=== PATIENT | male | born 1995 | race Caucasian/White ===

== ENCOUNTER 2023-04-23 21:48 | Emergency (ER) | payer MEDICAID, SELFPAY ==
[2023-04-23 21:53] VITALS: BP 124/68; PULSE 68; RESP 16; TEMP 37; O2SAT 99
--- NOTE | 2023-04-23 22:36 | ED_ITS ---
HPI - Abdominal Pain General Chief Complaint: Abdominal Pain Stated Complaint: ABD PAIN Time Seen by Provider: 04/23/23 22:24 Source: patient Mode of arrival: walk-in Limitations: no limitations History of Present Illness HPI narrative: patient describes that he was started on PCN and naprosyn for dental infection. He now presents complaining of epigastric pain that woke him up from his sleep. The pain was level 5/10 when he woke up. It has now decreased to 2/10. No associated nausea or vomiting. Has past history of anxiety depression for which he takes vistaril and lexapro. No history of heart disease Related Data Home Medications Medication Instructions Recorded Confirmed escitalopram oxalate 5 mg tablet mg 04/23/23 hydroxyzine pamoate 25 mg capsule mg 04/23/23 naproxen 500 mg tablet mg 04/23/23 penicillin V potassium 500 mg mg 04/23/23 tablet Allergies Allergy/AdvReac Type Severity Reaction Status Date / Time No Known Drug Allergies Allergy Verified 04/23/23 21:56 Review of Systems ROS Status of ROS 10 or more systems reviewed and unremark able except as noted in history and below PFSH PFS Social History Smoking status: Current every day smoker Exam Constitutional Vital Signs, click to edit/add: Last Vital Signs Temp 98.6 F 04/23/23 21:53 Pulse 83 04/23/23 23:53 Resp 16 04/23/23 21:53 BP 126/69 04/23/23 23:53 Pulse Ox 99 04/23/23 23:53 O2 Del Method Room Air 04/23/23 21:53 Common normals: no apparent distress, average body habitus, oriented x3, no limitations, healthy appearing, alert and well nourished Eye Common normals: EOMs intact bilaterally and conjunctivae normal Respiratory Common normals: normal respiratory effort and no retractions Cardio Common normals: regular rate, regular rhythm, S1 normal heart sound and S2 normal heart sound GI Other: mild epigastric tenderness Extremity Common normals: normal to inspection and full ROM Neuro Common normals: oriented x3, CN's II-XII intact bilaterally, moves all extremities and no focal motor deficits Psych Appearance: grossly normal Course Vital Signs Vital signs: Vital Signs Temperature 98.6 F 04/23/23 21:53 Pulse Rate 68 04/23/23 21:53 Respiratory Rate 16 04/23/23 21:53 Blood Pressure 124/68 04/23/23 21:53 Pulse Oximetry 99 04/23/23 21:53 Oxygen Delivery Method Room Air 04/23/23 21:53 Temperature 98.6 F 04/23/23 21:53 Pulse Rate 83 04/23/23 23:53 Respiratory Rate 16 04/23/23 21:53 Blood Pressure 126/69 04/23/23 23:53 Pulse Oximetry 99 04/23/23 23:53 Oxygen Delivery Method Room Air 04/23/23 21:53 MDM - Abdominal Pain MDM Narrative Medical decision making narrative: patient presents complaining of abdominal pain that started after he was treated for dental infection with PCN and naprosyn. No vomiting or diarrhea but burning pain of his abdomen that woke him up. Pain decreased by the time he arrived here and then resolved after GI cocktail. cxray normal. EKG without acute changes. Mild elevation of BUN. WBC normal and troponin neg. Patient advised to dc naprosyn and to follow up with his doctor for recheck this week. is to use OTC antacids as needed. Lab Data Labs: Lab Results 04/23/23 Range/Units 22:50 WBC 10.4 (4.0-11.0) 10^3/uL RBC 4.88 (4.70-6.10) 10^6/uL Hgb 14.3 (14.0-18.0) g/dL Hct 43.1 (42.0-54.0) % MCV 88.3 (80.0-94.0) fL MCH 29.3 (25.9-34.0) pg MCHC 33.2 (29.9-35.2) g/dL RDW 12.9 (11.0-15.0) % Plt Count 232 (150-450) 10^3/uL MPV 11.0 (9.5-13.5) fL Neut % (Auto) 56.8 (43.0-75.0) % Lymph % (Auto) 27.3 (20.5-60.0) % [place] % (Auto) 9.6 (1.7-12.0) % Eos % (Auto) 5.1 (0.9-7.0) % Baso % (Auto) 0.8 (0.2-2.0) % Neut # (Auto) 5.9 (1.4-6.5) 10^3/uL Lymph # (Auto) 2.9 (1.2-3.8) 10^3/uL [place] # (Auto) 1.0 H (0.3-0.8) 10^3/uL Eos # (Auto) 0.5 (0.0-0.7) 10^3/uL Baso # (Auto) 0.1 (0.0-0.1) 10^3/uL Abs Immat Gran (auto) 0.04 H (0.00-0.03) 10^3/uL Imm/Tot Granulo (auto) 0.4 (0.0-0.5) % Sodium 138 (136-145) mmol/L Potassium 4.1 (3.5-5.1) mmol/L Chloride 105 (98-107) mmol/L Carbon Dioxide 27.6 (21.0-32.0) mmol/L Anion Gap 9.5 BUN 24.0 H (7.0-18.0) mg/dL Creatinine 0.89 (0.70-1.30) mg/dL Est GFR ( Amer) >60 (>=60) Est GFR (Non-Af Amer) >60 (>=60) BUN/Creatinine Ratio 27.0 Glucose 93 (74-106) mg/dL Calcium 9.0 (8.5-10.1) mg/dL Total Bilirubin 0.3 (0.2-1.0) mg/dL AST 12 L (15-37) U/L ALT 18 (16-63) U/L Alkaline Phosphatase 105 (46-116) U/L Troponin I High Sens 12.5 (4.0-76.1) pg/mL Total Protein 7.1 (6.4-8.2) g/dL Albumin 3.7 (3.4-5.0) g/dL Globulin 3.4 g/dL Albumin/Globulin Ratio 1.1 Discharge Plan Discharge Chief Complaint: Abdominal Pain Clinical Impression: Gastritis Patient Disposition: Home, Self-Care Prescriptions / Home Meds: No Action escitalopram oxalate 5 mg tablet penicillin V potassium 500 mg tablet naproxen 500 mg tablet hydroxyzine pamoate 25 mg capsule Instructions: Gastritis (ED) Additional Instructions: discontinue naprosyn Stand Alone Forms: Portal Instructions Referrals: Physician,Non-Staff, MD [Primary Care Provider] - 1 week
--- NOTE | 2023-04-23 22:39 | ECG_ITS ---
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
--- NOTE | 2023-04-23 22:39 | XR_ITS ---
The [address] [address] Patient Name: HELEN REYNA MRN: [id number] date: 1995 Sex: M Assigned Patient Location: ER Current Patient Location: ER Accession/Order Number: [id number] Exam Date: 04/23/2023 23:20 Report Date: 04/23/2023 23:43 At the request of: ALEX ZAMORANO Procedure: XR chest 1V EXAM: XR chest 1V HISTORY: abdominal pain epigastric and midsternal pain for one week. COMPARISON: Chest x-ray, 01/26/2015. TECHNIQUE: AP upright portable chest x-ray. FINDINGS: The heart, mediastinum and pulmonary vascularity are within normal limits. The lungs are well expanded and clear. The bony thorax is intact. XR/XR chest 1V IMPRESSION: Negative portable chest x-ray. Electronically authenticated by: ARMANDO IRAHETA Date: 04/23/2023 23:43
[2023-04-23] MEDS: lidocaine HCL 15 ML, MAG HYDROX/ALUMINUM HYD/SIMETH 30 ML, HYOSCYAMINE SULFATE 0.25 MG PO (22:57)
[2023-04-23 23:05] LABS: Basophils Absolute Auto 0.1 10^3/uL (0.0-0.1); Basophils Percent Auto 0.8 % (0.2-2.0); Eosinophils Absolute Auto 0.5 10^3/uL (0.0-0.7); Eosinophils Percent Auto 5.1 % (0.9-7.0); Hematocrit 43.1 % (42.0-54.0); Hemoglobin 14.3 g/dL (14.0-18.0); Immature Granulocytes Abs Auto 0.04 10^3/uL (0.00-0.03); Immature Granulocytes Pct Auto 0.4 % (0.0-0.5); Lymphocytes Absolute Auto 2.9 10^3/uL (1.2-3.8); Lymphocytes Percent Auto 27.3 % (20.5-60.0); Mean Corpuscular HGB Conc 33.2 g/dL (29.9-35.2); Mean Corpuscular Hemoglobin 29.3 pg (25.9-34.0); Mean Corpuscular Volume 88.3 fL (80.0-94.0); Monocytes Percent Auto 9.6 % (1.7-12.0); Neutrophils Absolute Auto 5.9 10^3/uL (1.4-6.5); Neutrophils Percent Auto 56.8 % (43.0-75.0); Platelet Count 232 10^3/uL (150-450); Red Blood Count 4.88 10^6/uL (4.70-6.10); Red Cell Distribution Width 12.9 % (11.0-15.0); White Blood Count 10.4 10^3/uL (4.0-11.0)
[2023-04-23 23:20] LABS: Alanine Aminotransferase 18 U/L (16-63); Albumin Globulin Ratio 1.1; Albumin Level 3.7 g/dL (3.4-5.0); Alkaline Phosphatase 105 U/L (46-116); Anion Gap 9.5; Aspartate Amino Transferase 12 U/L (15-37); Bilirubin Total 0.3 mg/dL (0.2-1.0); Carbon Dioxide 27.6 mmol/L (21.0-32.0); Chloride 105 mmol/L (98-107); Estimated GFR (African America >60 (>=60); Estimated GFR (Non-African Ame >60 (>=60); Globulin 3.4 g/dL; Glucose 93 mg/dL (74-106); Potassium 4.1 mmol/L (3.5-5.1); Sodium 138 mmol/L (136-145); Total Protein 7.1 g/dL (6.4-8.2); Troponin I High Sensitivity 12.5 pg/mL (4.0-76.1)
[2023-04-23 23:53] VITALS: BP 126/69; PULSE 83; O2SAT 99
[2023-04-24 01:02] VITALS: PULSE 98; O2SAT 100
== END 2023-04-24 01:03 | disposition home or self-care (01) ==
PROVIDERS: Emergency Provider Internal Medicine
DX: K29.70 Gastritis, unspecified, without bleeding (principal); F41.9 Anxiety disorder, unspecified; F32.A Depression, unspecified; F17.200 Nicotine dependence, unspecified, uncomplicated
CPT/HCPCS: 36415; 71045; 80053; 84484; 85025; 93005; 99285

== ENCOUNTER 2023-05-09 03:52 | Emergency (ER) | payer MEDICAID, SELFPAY ==
[2023-05-09 03:56] VITALS: BP 160/83; PULSE 75; RESP 20; TEMP 37.2; O2SAT 98; BMI 24.4
--- OUTSIDE RECORDS SUMMARY | 2023-05-09 03:59 | XMS_ITS | CCD ---
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 together: Not on file Attends orthodox service: Not on file Active member of club or organization: Not on file Attends meetings of clubs or organizations: Not on file Relationship status: Not on file Other Topics Concern Not on file Social History Narrative Not on file MEDs: No current outpatient medications on file prior to encounter. ALL: No Known Allergies ROS: Review of Systems Constitutional: Negative for fever. Cardiovascular: Negative for chest pain. Gastrointestinal: Negative for nausea and vomiting. Musculoskeletal: Positive for neck pain. Negative for arthralgias and neck stiffness. Skin: Positive for wound. Negative for color change. Neurological: Positive for headaches. Negative for dizziness and numbness. All other systems reviewed and are negative. Positives and pertinent negatives as per HPI. All other systems were reviewed and are negative. Physical Exam: Patient Vitals for the past 24 hrs: BP Temp Temp src Pulse Resp SpO2 Height Weight 10/02/18 2106 125/78 98.1 F (36.7 C) Oral 77 16 99 % 5' 11 74.8 kg (165 lb) Physical Exam Constitutional: He is oriented to person, place, and time. He appears well- developed and well-nourished. No distress. HENT: Head: Normocephalic. Not microcephalic. Head is with laceration. Head is without raccoon's eyes and without abrasion. Mouth/Throat: Uvula is midline and oropharynx is clear and moist. Eyes: Conjunctivae and EOM are normal. Pupils are equal, round, and reactive to light. Neck: Normal range of motion and full passive range of motion without pain. Neck supple. Muscular tenderness present. No spinous process tenderness present. No edema, no erythema and normal range of motion present. There is tenderness to palpation noted in the LEFT paraspinal muscles of the upper cervical spine extending into the trapezius. There is no midline tenderness to palpation. Patient has 5 out of 5 strength in her upper extremities. Radial, median and ulnar are intact in the hands bilaterally. Cardiovascular: Normal rate and regular rhythm. Pulmonary/Chest: Effort normal and breath sounds normal. He exhibits no tenderness. Abdominal: Soft. Bowel sounds are normal. There is no tenderness. There is no rebound and no guarding. Neurological: He is alert and oriented to person, place, and time. He has normal strength. No cranial nerve deficit. He exhibits normal muscle tone. He displays a negative Romberg sign. Coordination and gait normal. GCS eye subscore is 4. GCS verbal subscore is 5. GCS motor subscore is 6. No facial droop or asymmetry. Speech clear, no dysarthria. Tongue remains midline when extended. Palate upgoing bilaterally. Extraocular movements intact. Visual west intact bilaterally. Shoulder shrug 5 out of 5 bilaterally. No motor or sensory deficit, no extensor drift in either arm or leg. Finger to nose, heel to rios normal Speech clear, face symmetric, PERRL, EOMI, no nystagmus noted, strength 5/5x4, sensation and coordination are grossly intact, gait steady Skin: Skin is warm. Capillary refill takes less than 2 seconds. No erythema. Psychiatric: He has a normal mood and affect. His behavior is normal. Nursing note and vitals reviewed. Laboratory & Radiological Imaging (if done): Labs Reviewed - No data to display CT Cervical Spine Without Contrast 3D Final Result No fracture or dislocation. Possible a small posterior central disc protrusion each at C3-C4 and C4-5. Workstation ID: [id number] CT Head Or Brain Without Contrast Final Result No acute intracranial process. A small right parietooccipital scalp hematoma. Workstation ID: [id number] Procedures: Wound extent: Lac Repair Date/Time: 10/02/2018 10:10 PM Performed by: Abida Martinez CNP Authorized by: Juan Boyd MD Verbal consent: obtained Consent given by: patient Relevant documents: Relevent documents present and verified. Medical history, medications, allergies and physical assessment reviewed/completed Patient identity confirmed: verified patient name and Body area: head/neck Location details: scalp Laceration length: 3 (y shape jagged laceration) cm Foreign bodies: no foreign bodies Anesthesia: local infiltration Anesthesia: Local Anesthetic: lidocaine 1% without epinephrine and LET (lido,epi,tetracaine) Anesthetic total: 5 mL Patient sedated: no Repair type: intermediate Preparation: Patient was prepped and draped in the usual sterile fashion. Irrigation solution: saline Irrigation method: syringe Amount of cleaning: extensive Hemostasis achieved with: direct pressure Wound exploration: wound explored through full range of motion Skin closure: may Number of sutures: 7 Number of sutures: 2 Technique: simple interrupted Approximation: close Dressinx4 sterile gauze and gauze roll Patient tolerance: Patient tolerated the procedure well with no immediate complications Note: To expedite correspondence this note was generated by [employer] voice recognition software. Some grammatical or spelling errors may occur using the system. SARA Aguirre, ENP-C ED Nurse Practitioner [facility] (Please note that portions of this note have been completed with a voice recognition software. Efforts were made to correct any errors, but occasionally words are mis-transcribed.) Abida Martinez CNP 10/02/18 2250 See /ISATU charting for full physical exam Patient reports slipping and falling. Patient hit head on the ground. Denies LOC. Bed: 24 Expected date: Expected time: Means of arrival: Comments: documented in this encounter ED Attestation Note - Juan Boyd MD - 10/02/2018 10:46 PM EDT Miscellaneous Notes (unrecog nized section and content) ED Attestation: I was personally available for consult in the ED for this patient, if the Advanced Practice Provider (K[facility]) needed any assistance. The [facility] evaluated the patient independently for a complaint of Head Laceration, and completed their own examination, documentation, and discharge. Juan Boyd MD, FACEP Emergency Department Physician documented in this encounter (unrecognized sect ion and content) No Status Records FoundNo Status Records Found INFORMATION SOURCE (unrecogn ized section and content) DATE CREATED AUTHOR 12/21/2018 [facility] DATE CREATED AUTHOR AUTHOR'S ORGANIZ ATION 09/08/2021 [facility] DATE CREATED AUTHOR AUTHOR'S ORGANIZ ATION 04/18/2023 [facility] FOR RECORDS PERTAINING TO PATIENTS WHO ARE OR HAVE BEEN ENROLLED IN A CHEMICAL DEPENDENCY/SUBSTANCEABUSE PROGRAM, SOME INFORMATION MAY BE OMITTED. This clinical summary was aggregated from multiple sources. Caution should be exercised in using it in the provision of clinical care. This summary normalizes information from multiple sources, and as a consequence, information in this document may materially change the coding, format and clinical context of patient data. In addition, data may be omitted in some cases. CLINICAL DECISIONS SHOULD BE BASED ON THE PRIMARY CLINICAL RECORDS. [facility] [employer] provides no warranty or guarantee of the accuracy or completeness of information in this document.
--- NOTE | 2023-05-09 04:22 | ED.DENTAL1 ---
HPI - Dental/Oral General Chief complaint: Dental/Oral Stated complaint: DENTAL PAIN Time Seen by Provider: 05/09/23 04:01 Source: patient Mode of arrival: walk-in History of Present Illness HPI Narrative: This 28-year-old male presents for evaluation of left lower posterior molar pain. The patient has a severely decayed and broken left posterior molar, tooth #17. He states for the past several days he has been having pain in this area. He has been using Tylenol and Motrin without relief. He has not had a fever. There is no sign of necrotizing gingivitis. His girlfriend states they have been calling around to different dentists but most dentists are booked until July. Related Data Home Medications Medication Instructions Recorded Confirmed escitalopram oxalate 5 mg tablet 5 mg PO DAILY 04/23/23 05/09/23 hydroxyzine pamoate 25 mg capsule 25 mg PO DAILY 04/23/23 05/09/23 Allergies Allergy/AdvReac Type Severity Reaction Status Date / Time No Known Drug Allergies Allergy Verified 05/09/23 03:58 Review of Systems ROS Status of ROS 10 or more systems reviewed and unremarkable except as noted in history and below [facility] Social History Smoking status: Current every day smoker Exam Narrative Exam Narrative: Nurses note and vital signs reviewed and patient is not hypoxic. General: Uncomfortable appearing male, he is sitting on a stool and shaking, he is tearful, no respiratory distress Skin: Warm, dry, no pallor noted. There is no rash noted. Head: Normocephalic, atraumatic Eye: Normal conjunctiva, no drainage, EOMI. PERRL Ears, Nose, Mouth, and Throat: oral mucosa is moist.Teeth are in generally poor condition. The left posterior molar #17 is severely decayed and the medial aspect of the tooth is broken to the gumline. There is no visible abscess. There is no sign of any necrotizing gingivitis. There is no swelling of the tongue, uvula or pharyngeal soft tissues. There is no pooling of secretions. Cardiovascular: Regular Rate and Rhythm Respiratory: Patient is in no distress, no accessory muscle use, lungs are clear to auscultation, no wheezing, rales or rhonchi Neurological: A&O x4, normal speech Psychiatric: Cooperative Constitutional Vital Signs, click to edit/add: Last Vital Signs Temp 98.9 F 05/09/23 03:56 Pulse 75 05/09/23 03:56 Resp 20 05/09/23 03:56 BP 160/83 H 05/09/23 03:56 Pulse Ox 98 05/09/23 03:56 O2 Del Method Room Air 05/09/23 03:56 Course Vital Signs Vital signs: Vital Signs Temperature 98.9 F 05/09/23 03:56 Pulse Rate 75 05/09/23 03:56 Respiratory Rate 20 05/09/23 03:56 Blood Pressure 160/83 H 05/09/23 03:56 Pulse Oximetry 98 05/09/23 03:56 Oxygen Delivery Method Room Air 05/09/23 03:56 Temperature 98.9 F 05/09/23 03:56 Pulse Rate 75 05/09/23 03:56 Respiratory Rate 20 05/09/23 03:56 Blood Pressure 160/83 H 05/09/23 03:56 Pulse Oximetry 98 05/09/23 03:56 Oxygen Delivery Method Room Air 05/09/23 03:56 MDM - Dental/Oral MDM Narrative Medical decision making narrative: This 28-year-old male presents for evaluation of several days of left posterior molar pain Where he has a broken and decayed left posterior molar. There was no sign of any necrotizing gingivitis. I did not visualize an abscess. There is no swelling of the posterior pharynx and no pooling of secretions. The patient had been using Tylenol and Motrin without significant improvement in his pain. Upon arrival he was hypertensive and shaking in pain. Dental analgesia and a dental block was used to control his pain. He was medicated with oral amoxicillin. [facility] report was reviewed and is negative for any recent activity. He was discharged home with 2 percocet to use once his dental block wears off and Rx for norco and amoxil as well as referral information for local dentists. Discharge Plan Discharge Chief Complaint: Dental/Oral Clinical Impression: Dental caries, Toothache Patient Disposition: Home, Self-Care Time of Disposition Decision: 05:05 Condition: Good Prescriptions / Home Meds: No Action escitalopram oxalate 5 mg tablet 5 mg PO DAILY hydroxyzine pamoate 25 mg capsule 25 mg PO DAILY Instructions: Toothache (ED) Stand Alone Forms: Portal Instructions Referrals: Physician,Non-Staff, MD [Primary Care Provider] - 1 week Procedures ED Procedure Instructions Procedures Procedures: Procedure note: Dental block; a mixture of 0.5 percent Marcaine and 1 percent lidocaine was used to infiltrate the alveolar space around tooth #17. Patient tolerated procedure well and had relief of his pain.
[2023-05-09] MEDS: AMOXICILLIN 500 MG CAPSULE PO (04:32)
[2023-05-09] MEDS: ONDANSETRON 4 MG RAPDIS TABLET SL (04:32)
[2023-05-09] MEDS: OXYCODONE HCL/ACETAMINOPHEN 5MG/325MG 2 TAB PO (04:34)
[2023-05-09] MEDS: BUPIVACAINE HCL 0.5% PF 50 MG/10 ML VIAL 5 ML INJ (04:37)
[2023-05-09] MEDS: LIDOCAINE HCL 1% 100 MG/10 ML MDV 5 ML INJ (04:37)
[2023-05-09] MEDS: BENZOCAINE 30 ML, lidocaine HCL 15 ML MM (05:09)
== END 2023-05-09 05:18 | disposition home or self-care (01) ==
PROVIDERS: Emergency Provider Emergency Medicine
DX: K02.9 Dental caries, unspecified (principal); K08.89 Other specified disorders of teeth and supporting structures; F17.200 Nicotine dependence, unspecified, uncomplicated
CPT/HCPCS: 64450; 99284

== ENCOUNTER 2023-05-31 21:58 | Emergency (ER) | payer MEDICAID, SELFPAY ==
[2023-05-31 22:02] VITALS: BP 131/75; PULSE 70; RESP 16; TEMP 36.7; O2SAT 99; BMI 24.4
--- OUTSIDE RECORDS SUMMARY | 2023-05-31 22:04 | XMS_ITS | CCD ---
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 Luis Aleman BAR Negative Normal NEGATIVE [facility] Comment on above: Performed By: #### D RUGRPD #### [facility] [address] [place] [address] Dr. Luis Aleman BUP Negative Normal NEGATIVE [facility] Comment on above: Performed By: #### D RUGRPD #### [facility] [address] [place] [address] Dr. Luis Aleman BZO Negative Normal NEGATIVE [facility] Comment on above: Performed By: #### D RUGRPD #### [facility] [address] [place] [address] Dr. Luis Aleman BRAYDEN Negative Normal NEGATIVE [facility] Comment on above: Performed By: #### D RUGRPD #### [facility] [address] [place] [address] Dr. Luis Aleman CUT-OFFS SEE BELOW Normal [facility] Comment on above: Result Comment: AMP (Amphetamine): 500ng/mL, BAR (Barbituates): 200 ng/mL, BZO (Benzodiazepines): 150 ng/mL, BUP (Buprenorphine): 10 ng/mL, BRAYEDN (Cocaine): 150 ng/mL, mAMP (Methamphetamine): 500 ng/mL, MTD (Methadone): 200 ng/mL, OPI (Opiates): 100 ng/mL, OXY (Oxycodone): 100 ng/mL, PCP (Phencyclidine): 25 ng/mL, PPX (Propoxyphene): 300 ng/mL, THC (Cannabinoids): 50 ng/mL, TCA (Trycyclic Antidepressants): 300 ng/mL Performed By: #### D RUGRPD #### [facility] [address] [place] [address] Dr. Luis Aleman DRUG CUT HEADER DRUG CLASS TEST SYST EM CUT-OFF CONCENTRATIONS ARE FOLLOWS: Normal [facility] Comment on above: Performed By: #### D RUGRPD #### [facility] [address] [place] [address] Dr. Luis Aleman mAMP Negative Normal NEGATIVE [facility] Comment on above: Performed By: #### D RUGRPD #### [facility] [address] [place] [address] Dr. Luis Aleman MTD Negative Normal NEGATIVE [facility] Comment on above: Performed By: #### D RUGRPD #### [facility] [address] [place] [address] Dr. Luis Aleman OPI Negative Normal NEGATIVE [facility] Comment on above: Performed By: #### D RUGRPD #### [facility] [address] [place] [address] Dr. Luis Aleman OXY Negative Normal NEGATIVE [facility] Comment on above: Performed By: #### D RUGRPD #### [facility] [address] [place] [address] Dr. Luis Aleman PCP Negative Normal NEGATIVE [facility] Comment on above: Performed By: #### D RUGRPD #### [facility] [address] [place] [address] Dr. Luis Aleman PPX Negative Normal NEGATIVE [facility] Comment on above: Performed By: #### D RUGRPD #### [facility] [address] [place] [address] Dr. Luis Aleman TCA Negative Normal NEGATIVE [facility] Comment on above: Performed By: #### D RUGRPD #### [facility] [address] [place] [address] Dr. Luis Aleman THC Negative Normal NEGATIVE [facility] Comment on above: Performed By: #### D RUGRPD #### [facility] [address] [place] [address] CERVICAL SPINE WITHOUT [...] images were generated on a separate independent [employer] workstation. COMPARISON: None. FINDINGS: No acute fracture [...] each at C3-C4 and C4-5. Workstation ID: [id number] Dictated by: VARGAS BLANCO on SatOctober 02, 2018 10:30:04 PM EDT Transcribed by: VARGAS BLANCO on SatOctober 02, 2018 10:30:04 PM EDT Finalized by: VARGAS BLANCO on SatOctober 02, 2018 10:30:04 PM EDT [facility] Comment on above: Order Comment: Reaso n for exam?:Patient reports slipping and falling. Patient hit head on the ground. Denies LOC. Injury/Trauma or Illness?:Injury/Trauma How long have you had these symptoms (acute/chronic)?:Acute Type of Exam?:Initial Mechanism of injury?:fall No fracture or dislocation. Possible a small posterior central disc protrusion each at C3-C4 and C4-5. Workstation ID: [id number] [facility] EXAMINATION: CT CERVICAL SPINE WITHOUT [...] images were generated on a separate independent [employer] workstation. COMPARISON: None. FINDINGS: No acute fracture or dislocation. The prevertebral soft tissue space appears normal. Possible a small posterior central disc protrusion each at C3-C4 and C4-5. The visualized intracranial contents appear normal. The visualized neck shows no abnormal mass. The visualized upper lungs are clear. [facility] Interface, Rad In Fu ji [...] images were generated on a separate independent [employer] workstation. COMPARISON: None. FINDINGS: No acute fracture [...] each at C3-C4 and C4-5. Workstation ID: [id number] [facility] CT HEAD OR BRAIN WITHOUT [...] small right parietooccipital scalp hematoma. Workstation ID: [id number] Dictated by: VARGAS BLANCO on SatOctober 02, 2018 10:25:56 PM EDT Transcribed by: VARGAS BLANCO on SatOctober 02, 2018 10:25:56 PM EDT Finalized by: VARGAS BLANCO on SatOctober 02, 2018 10:25:56 PM EDT [facility] Comment on above: Order Comment: Reaso n for exam?:Patient reports slipping and falling. Patient hit head on the ground. Denies LOC. Injury/Trauma or Illness?:Injury/Trauma How long have you had these symptoms (acute/chronic)?:Acute Type of Exam?:Initial Mechanism of injury?:fall No acute intracrania l process. A small right parietooccipital scalp hematoma. Workstation ID: [id number] [facility] EXAMINATION: CT HEAD OR BRAIN [...] small right parietooccipital scalp hematoma is present. [facility] Interface, Rad In Fu ji [...] small right parietooccipital scalp hematoma. Workstation ID: [id number] [facility] LACERATION REPAIRon 10-03-19 Abida Martinez [...] the procedure well with no immediate complications [facility] Vital Signs Date Time Vital Sign Value Performing Clinician Facility 04-11-2023 12:40-0500 Body height 177.8 cm Azalea Kimani Other [facility] Other 04-11-2023 12:40-0500 Body mass index (BMI) [Ratio] 25.68 kg/m2 Azalea Kimani Other [facility] Other 04-11-2023 12:40-0500 Body temperature 98.8 [degF] Azalea Kimani Other [facility] Other 04-11-2023 12:40-0500 Body weight 81.19 kg Azalea Kimani Other [facility] Other 04-11-2023 12:40-0500 Respiratory rate 19 /min Azalea Kimani Other [facility] Other 04-11-2023 12:40-0500 SaO2% (BldA) [Mass fraction] 97 % Azalea Kimani Other [facility] Other 10-02-2018 21:06-0400 BMI (Body Mass Index) 23.01 kg/m2 Juan Boyd [facility] 10-02-2018 21:06-0400 Body Temperature 98.1 [degF] Juan Boyd [facility] 10-02-2018 21:06-0400 BP Diastolic 78 mm[Hg] Juan [facility] 10-02-2018 21:06-0400 BP Systolic 125 mm[Hg] Juan [facility] 10-02-2018 21:06-0400 Height 180.3 cm Juan [facility] 10-02-2018 21:06-0400 Pulse (Heart Rate) 77 /min Juan [facility] 10-02-2018 21:06-0400 Pulse Oximetry 99 % Juan [facility] 10-02-2018 21:06-0400 Respiratory Rate 16 /min Juan [facility] 10-02-2018 21:06-0400 Weight 74.84 kg Juan [facility] Encounters Encounter Date Encounter Type Care Provider Facility Start: 04-11-2023 End: 04-11-2023 ambulatory Azalea Kimani Other [facility] Other Start: 04-11-2023 Office outpatient visit 15 minutes Azalea Kimani [facility] Start: 03-07-2023 ambulatory Ludwin Stephen acility:[facility] Start: 09-05-2021 End: 09-05-[address] NONE LISTED REQUEST Facility: Start: 10-02-2018 End: 10-03-2018 Emergency department patient visit JUAN CABRAL [facility] Start: 10-02-2018 End: 10-02-2018 Emergency department patient visit Juan Boyd Work Phone: [facility] Emergency Department Comment on above: Head [...] given SE QUENTIAL INFLUENZA VACCINE (Season Ended) [facility] Start: 1997 History and physical examination, annual for health maintenance Wellness Visit [facility] Start: 1994 Tetanus vaccination TETANUS EVERY 10 YR [facility] Immunizations Immunization Date Immunization Notes Care Provider Kae salinasty 10-02-2018 diphtheria, tetanus toxoids and acellular pertussis vaccine, unspecified formulation Juan Boyd [facility] 10-02-2018 tetanus toxoid, redu nataly diphtheria toxoid, and acellular pertussis vaccine, adsorbed Juan [facility] Payers Date Payer Category Payer Self-pay 1994 Unknown [id number] 1994 Unknown [id number] 1959 Unknown [id number] Unknown INCARCERATIONS I NC-INCARCERATED MISC xxxxxxxxx Effective for all dates xxxxxxxxx [id number] Unknown [id number] Social History Date Type Detail Facility Start: 10-02-2018 Tobacco smoking status NHIS Former smoker [facility] Sex Assigned At Not on file [facility] Sex Assigned At Sex Assigned At [facility] Other Evaluation note 04-11-2023 Note Date & [...] dark tarry stools or coffee gorund vomit. 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 Associated Order(s): Lac Repair Lizette Thompson [facility] ED Physician Note: NAME: Helen Reyna 23 y.o. CSN: [id number] PCP: Physician No Chief Complaint: Head Laceration [...] instructions. Disposition: [facility] Follow-up Information 1. [facility]iary doctor. 2 days for head injury. 10 [...] comes [facility] emergency room [facility] for evaluation of head laceration. Patient reports [...] from the fall History provided by: Patient bilingual interpreter used: No PMHx: History reviewed. No pertinent [...] file Gets together: Not on file Attends uatsdin service: Not on file Active member of [...] each at C3-C4 and C4-5. Workstation ID: [id number] CT Head Or Brain Without Contrast Final Result No acute intracranial process. A small right parietooccipital scalp hematoma. Workstation ID: [id number] Procedures: Wound extent: Lac Repair Date/Time: 10/02/2018 [...] expedite correspondence this note was generated by [employer] voice recognition software. Some grammatical or spelling errors may occur using the system. SARA Aguirre, ENP-C ED Nurse Practitioner [facility] Emergency Department (Please note that portions of this note have been completed with a voice recognition software. Efforts were made to correct any errors, but occasionally words are mis-transcribed.) Abida Martinez CNP 10/02/18 2259 See /ISATU charting for full physical exam [...] patricia DATE CREATED AUTHOR AUTHOR'S ORGANIZ ATION 05/25/2023 [facility] FOR RECORDS PERTAINING TO PATIENTS WHO ARE [...] ON THE PRIMARY CLINICAL RECORDS. [facility] [employer] provides no warranty or guarantee of the accuracy or completeness of information in this document.
--- NOTE | 2023-05-31 22:16 | ED.SKABFB1 ---
HPI - Skin/Abscess/Foreign Bdy General Chief complaint: Skin/Abscess/Foreign Body Stated complaint: rash Time Seen by Provider: 05/31/23 21:59 Source: patient Mode of arrival: walk-in History of Present Illness HPI narrative: 28-year-old male presents for a rash. It is oval with central clearing and it keeps getting bigger over time and he's had it for a few weeks. Sometimes it itches a little bit. This is the only spot that hands. It's continuous. Related Data Home Medications Medication Instructions Recorded Confirmed escitalopram oxalate 5 mg tablet 5 mg PO DAILY 04/23/23 05/31/23 hydroxyzine pamoate 25 mg capsule 25 mg PO DAILY 04/23/23 05/31/23 Previous Rx's Medication Instructions Recorded clotrimazole-betamethasone 1 1 applic topical BID 2 weeks #45 05/31/23 %-0.05 % topical cream grams Allergies Allergy/AdvReac Type Severity Reaction Status Date / Time No Known Drug Allergies Allergy Verified 05/31/23 22:05 Review of Systems ROS Narrative A ten point review of systems is negative except as noted above. PFSH PFSH Social History Smoking status: Current every day smoker Exam Narrative Exam Narrative: Nurses note and vital signs reviewed and patient is not hypoxic. General: The patient appears well and in no apparent distress. Patient is resting comfortably on cart. Skin: Warm, dry, no pallor noted. There is an oval slightly erythematous rash on his left lower abdomen with central clearing. Head: Normocephalic, atraumatic Eye: Normal conjunctiva, no drainage Ears, Nose, Mouth, and Throat: oral mucosa is moist. Nares patent. Cardiovascular: Regular Rate and Rhythm Respiratory: Patient is in no distress, no accessory muscle use Back: non-tender GI: soft and nontender Musculoskeletal: The patient has no evidence of calf tenderness, no pitting edema, symmetrical pulses noted bilaterally Neurological: A&O, normal speech Psychiatric: Cooperative Constitutional Vital Signs, click to edit/add: Last Vital Signs Temp 98.1 F 05/31/23 22:02 Pulse 70 05/31/23 22:02 Resp 16 05/31/23 22:02 BP 131/75 05/31/23 22:02 Pulse Ox 99 05/31/23 22:02 O2 Del Method Room Air 05/31/23 22:02 Course Vital Signs Vital signs: Vital Signs Temperature 98.1 F 05/31/23 22:02 Pulse Rate 70 05/31/23 22:02 Respiratory Rate 16 05/31/23 22:02 Blood Pressure 131/75 05/31/23 22:02 Pulse Oximetry 99 05/31/23 22:02 Oxygen Delivery Method Room Air 05/31/23 22:02 Temperature 98.1 F 05/31/23 22:02 Pulse Rate 70 05/31/23 22:02 Respiratory Rate 16 05/31/23 22:02 Blood Pressure 131/75 05/31/23 22:02 Pulse Oximetry 99 05/31/23 22:02 Oxygen Delivery Method Room Air 05/31/23 22:02 MDM - Skin/Abscess/Foreign Bdy MDM Narrative Medical decision making narrative: by clinical impressions tthat she has tinea corporis. Treatment diagnosis and follow-up were discussed with the patient. Differential Diagnosis Differential diagnosis: Likely dermatophytosis, urticaria, cellulitis and contact dermatitis Discharge Plan Discharge Chief Complaint: Skin/Abscess/Foreign Body Clinical Impression: Tinea corporis Patient Disposition: Home, Self-Care Time of Disposition Decision: 22:13 Condition: Good Mode of Transportation: Private Vehicle Prescriptions / Home Meds: New clotrimazole-betamethasone 1-0.05 % cream 1 applic topical BID 14 Days Qty: 45 0RF No Action escitalopram oxalate 5 mg tablet 5 mg PO DAILY hydroxyzine pamoate 25 mg capsule 25 mg PO DAILY Instructions: Tinea Corporis (ED) Stand Alone Forms: Portal Instructions Referrals: Physician,Non-Staff, MD [Primary Care Provider] - 1 week
== END 2023-05-31 22:30 | disposition home or self-care (01) ==
PROVIDERS: Emergency Provider Emergency Medicine
DX: B35.4 Tinea corporis (principal); F17.210 Nicotine dependence, cigarettes, uncomplicated
CPT/HCPCS: 99283

== ENCOUNTER 2023-07-08 22:26 | Emergency (ER) | payer MEDICAID, SELFPAY ==
[2023-07-08 22:35] VITALS: BP 135/73; PULSE 70; RESP 18; TEMP 36.9; O2SAT 98; BMI 23.1
--- OUTSIDE RECORDS SUMMARY | 2023-07-08 22:38 | XMS_ITS | CCD ---
Author Name Unknown Address [address] [place] [address] Organization [facility] Care Team Providers Care Coat Room Attendant Name Role Phone No, Physician Primary Care [...] bee venom Drug allergy (disorder) 08-12-2015 [facility] Repository Medications Current Medications Medication Drug Class(es) [...] VARGAS BLANCO Date: 2021-09-05 19:49 Normal [facility] DRUG SCREEN RAPID (URINE)on 09-05-2021 AMP Negative Normal NEGATIVE [facility] Comment on above: Performed By: #### D RUGRPD #### [facility] [address] [place] [address] Dr. Luis Aleman BAR Negative Normal NEGATIVE [facility] Comment on above: Performed By: #### D RUGRPD #### [facility] [address] [place] [address] Dr. Luis Aleman BUP Negative Normal NEGATIVE [facility] Comment on above: Performed By: #### D RUGRPD #### [facility] [address] [place] [address] Dr. Luis Aleman BZO Negative Normal NEGATIVE [facility] Comment on above: Performed By: #### D RUGRPD #### [facility] [address] [place] [address] Dr. Luis Aleman BRAYDEN Negative Normal NEGATIVE [facility] Comment on above: Performed By: #### D RUGRPD #### [facility] [address] [place] [address] Dr. Luis Aleman CUT-OFFS SEE BELOW Normal [facility] Comment on above: Result Comment: AMP (Amphetamine): 500ng/mL, BAR (Barbituates): 200 ng/mL, BZO (Benzodiazepines): 150 ng/mL, BUP (Buprenorphine): 10 ng/mL, BRAYDEN (Cocaine): 150 ng/mL, mAMP (Methamphetamine): 500 ng/mL, MTD (Methadone): 200 ng/mL, OPI (Opiates): 100 ng/mL, OXY (Oxycodone): 100 ng/mL, PCP (Phencyclidine): 25 ng/mL, PPX (Propoxyphene): 300 ng/mL, THC (Cannabinoids): 50 ng/mL, TCA (Trycyclic Antidepressants): 300 ng/mL Performed By: #### D RUGRPD #### [facility] [address] [place] [address] Dr. Luis Aleman DRUG CUT HEADER DRUG CLASS TEST SYST EM CUT-OFF CONCENTRATIONS ARE FOLLOWS: Normal [facility] Comment on above: Performed By: #### D RUGRPD #### [facility] [address] [place] [address] Dr. Luis Aleman mAMP Negative Normal NEGATIVE [facility] Comment on above: Performed By: #### D RUGRPD #### [facility] [address] [place] [address] Dr. Luis Aleman MTD Negative Normal NEGATIVE [facility] Comment on above: Performed By: #### D RUGRPD #### [facility] [address] [place] [address] Dr. Luis Aleman OPI Negative Normal NEGATIVE [facility] Comment on above: Performed By: #### D RUGRPD #### [facility] [address] [place] [address] Dr. Luis Aleman OXY Negative Normal NEGATIVE [facility] Comment on above: Performed By: #### D RUGRPD #### [facility] [address] [place] [address] Dr. Luis Aleman PCP Negative Normal NEGATIVE [facility] Comment on above: Performed By: #### D RUGRPD #### [facility] [address] [place] [address] Dr. Luis Aleman PPX Negative Normal NEGATIVE [facility] Comment on above: Performed By: #### D RUGRPD #### [facility] [address] [place] [address] Dr. Luis Aleman TCA Negative Normal NEGATIVE [facility] Comment on above: Performed By: #### D RUGRPD #### [facility] [address] [place] [address] Dr. Luis Aleman THC Negative Normal NEGATIVE [facility] Comment on above: Performed By: #### D RUGRPD #### [facility] [address] [place] [address] CERVICAL SPINE WITHOUT [...] images were generated on a separate independent [employer] workstation. COMPARISON: None. FINDINGS: No acute fracture [...] each at C3-C4 and C4-5. Workstation ID: [id number] Dictated by: VARGAS BLANCO on SatOctober 02, 2018 10:30:04 PM EDT Transcribed by: VARGAS BLANCO on SatOctober 02, 2018 10:30:04 PM EDT Finalized by: VARGAS BLANCO on SatOctober 02, 2018 10:30:04 PM EDT [facility] Comment on above: Order Comment: Reaso n for exam?:Patient reports slipping and falling. Patient hit head on the ground. Denies LOC. Injury/Trauma or Illness?:Injury/Trauma How long have you had these symptoms (acute/chronic)?:Acute Type of Exam?:Initial Mechanism of injury?:fall No fracture or dislocation. Possible a small posterior central disc protrusion each at C3-C4 and C4-5. Workstation ID: [id number] [facility] EXAMINATION: CT CERVICAL SPINE WITHOUT CONTRAST 3D. [...] images were generated on a separate independent [employer] workstation. COMPARISON: None. FINDINGS: No acute fracture or dislocation. The prevertebral soft tissue space appears normal. Possible a small posterior central disc protrusion each at C3-C4 and C4-5. The visualized intracranial contents appear normal. The visualized neck shows no abnormal mass. The visualized upper lungs are clear. [facility] Interface, Rad In Fu ji Speechq - [...] images were generated on a separate independent [employer] workstation. COMPARISON: None. FINDINGS: No acute fracture [...] each at C3-C4 and C4-5. Workstation ID: [id number] [facility] CT HEAD OR BRAIN WITHOUT CON TRASTon [...] small right parietooccipital scalp hematoma. Workstation ID: [id number] Dictated by: VARGAS BLANCO on SatOctober 02, 2018 10:25:56 PM EDT Transcribed by: VARGAS BLANCO on SatOctober 02, 2018 10:25:56 PM EDT Finalized by: VARGAS BLANCO on SatOctober 02, 2018 10:25:56 PM EDT [facility] Comment on above: Order Comment: Reaso n for exam?:Patient reports slipping and falling. Patient hit head on the ground. Denies LOC. Injury/Trauma or Illness?:Injury/Trauma How long have you had these symptoms (acute/chronic)?:Acute Type of Exam?:Initial Mechanism of injury?:fall No acute intracrania l process. A small right parietooccipital scalp hematoma. Workstation ID: [id number] [facility] EXAMINATION: CT HEAD OR BRAIN WITHOUT CONTRAST;10/02/2018 [...] small right parietooccipital scalp hematoma is present. [facility] Interface, Rad In Fu ji Speechq - [...] small right parietooccipital scalp hematoma. Workstation ID: [id number] [facility] LACERATION REPAIRon 10-03-19 Abida Martinez CNP 10/02/2018 [...] the procedure well with no immediate complications [facility] Vital Signs Date Time Vital Sign Value Performing Clinician Facility 04-11-2023 12:40-0500 Body height 177.8 cm Azalea Kimani Other [facility] Other 04-11-2023 12:40-0500 Body mass index (BMI) [Ratio] 25.68 kg/m2 Azalea Kimani Other [facility] Other 04-11-2023 12:40-0500 Body temperature 98.8 [degF] Azalea Kimani Other [facility] Other 04-11-2023 12:40-0500 Body weight 81.19 kg Azalea Kimani Other [facility] Other 04-11-2023 12:40-0500 Respiratory rate 19 /min Azalea Kimani Other [facility] Other 04-11-2023 12:40-0500 SaO2% (BldA) [Mass fraction] 97 % Azalea Kimani Other [facility] Other 10-02-2018 21:06-0400 BMI (Body Mass Index) 23.01 kg/m2 Juan Boyd [facility] 10-02-2018 21:06-0400 Body Temperature 98.1 [degF] Juan Boyd [facility] 10-02-2018 21:06-0400 BP Diastolic 78 mm[Hg] Juan [facility] 10-02-2018 21:06-0400 BP Systolic 125 mm[Hg] Juan [facility] 10-02-2018 21:06-0400 Height 180.3 cm Juan [facility] 10-02-2018 21:06-0400 Pulse (Heart Rate) 77 /min [facility] 10-02-2018 21:06-0400 Pulse Oximetry 99 % Juan [facility] 10-02-2018 21:06-0400 Respiratory Rate 16 /min Juan [facility] 10-02-2018 21:06-0400 Weight 74.84 kg Juan [facility] Encounters Encounter Date Encounter Type Care Provider Facility Start: 04-11-2023 End: 04-11-2023 ambulatory Azalea Kimani Other [facility] Other Start: 04-11-2023 Office outpatient visit 15 minutes Azalea Kimani [facility] Start: 03-28-2023 ambulatory Ludwin Stephen acility:[facility] Start: 09-05-2021 End: 09-05-[address] NONE LISTED REQUEST Facility: Start: 10-02-2018 End: 10-03-2018 Emergency department patient visit JUAN CABRAL [facility] Start: 10-02-2018 End: 10-02-2018 Emergency department patient visit Juan Boyd Work Phone: [facility] Comment on above: Head injury, [...] given SE QUENTIAL INFLUENZA VACCINE (Season Ended) [facility] Start: 1997 History and physical examination, annual for health maintenance Wellness Visit [facility] Start: 1995 Tetanus vaccination TETANUS EVERY 10 YR [facility] Immunizations Immunization Date Immunization Notes Care Provider Kae salinasty 10-02-2018 diphtheria, tetanus toxoids and acellular pertussis vaccine, unspecified formulation Juan Boyd [facility] 10-02-2018 tetanus toxoid, redu nataly diphtheria toxoid, and acellular pertussis vaccine, adsorbed Juan [facility] Payers Date Payer Category Payer Self-pay 1994 Unknown [id number] 1994 Unknown [id number] 1959 Unknown [id number] Unknown INCARCERATIONS I NC-INCARCERATED MISC xxxxxxxxx Effective for all dates xxxxxxxxx [id number] Unknown [id number] Social History Date Type Detail Facility Start: 10-02-2018 Tobacco smoking status NHIS Former smoker [facility] Sex Assigned At Not on file [facility] Sex Assigned At Sex Assigned At [facility] Other Evaluation note 04-11-2023 Note Date & [...] dark tarry stools or coffee gorund vomit. 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 Associated Order(s): Lac Repair Lizette Thompson [facility] ED Physician Note: NAME: Helen Reyna 23 y.o. CSN: [id number] PCP: Physician No Chief Complaint: Head Laceration [...] instructions. Disposition: Patient is being discharged to longterm Follow-up Information 1. longterm doctor. 2 days for head injury. 10 [...] comes to emergency room via ambulance from longterm for evaluation of head laceration. Patient reports [...] from the fall History provided by: Patient homemaker companion used: No PMHx: History reviewed. No pertinent [...] file Gets together: Not on file Attends [employer] service: Not on file Active member of [...] each at C3-C4 and C4-5. Workstation ID: [id number] CT Head Or Brain Without Contrast Final Result No acute intracranial process. A small right parietooccipital scalp hematoma. Workstation ID: [id number] Procedures: Wound extent: Lac Repair Date/Time: 10/02/2018 [...] expedite correspondence this note was generated by [employer] voice recognition software. Some grammatical or spelling errors may occur using the system. SARA Aguirre, ENP-C ED Nurse Practitioner [facility] Emergency [facility] (Please note that portions of this note have been completed with a voice recognition software. Efforts were made to correct any errors, but occasionally words are mis-transcribed.) Abida Martinez CNP 10/02/18 2251 See /ISATU charting for full physical exam [...] patricia DATE CREATED AUTHOR AUTHOR'S ORGANIZ ATION 06/07/2023 [facility] FOR RECORDS PERTAINING TO PATIENTS [...] BE BASED ON THE PRIMARY CLINICAL RECORDS. [facility] [employer] provides no warranty or guarantee of the accuracy or completeness of information in this document.
--- NOTE | 2023-07-08 22:46 | PC.NURSE ---
Pt has ring worm on abd in LLQ. Has been treated in the past for it but the rash never fully resolved. Pt requesting more medicated cream.
--- NOTE | 2023-07-08 22:56 | ED_ITS ---
HPI - Skin/Abscess/Foreign Bdy General Chief complaint: Skin/Abscess/Foreign Body Stated complaint: RASH Time Seen by Provider: 07/08/23 22:37 Source: patient Mode of arrival: walk-in Limitations: no limitations History of Present Illness HPI narrative: This 28-year-old male presents for evaluation and requesting a refill for an antifungal cream that he is using for tinea. He was seen here recently and diagnosed with tinea corporis. She was given a cream the name of which she cannot recall and has been using at with clinical improvement but now he has a new spot in his right upper arm and in his lower abdominal wall. No additional injuries or complaints. Related Data Home Medications Medication Instructions Recorded Confirmed escitalopram oxalate 5 mg tablet 5 mg PO DAILY 04/23/23 07/08/23 hydroxyzine pamoate 25 mg capsule 25 mg PO DAILY 04/23/23 07/08/23 Allergies Allergy/AdvReac Type Severity Reaction Status Date / Time No Known Drug Allergies Allergy Verified 05/31/23 22:05 Review of Systems ROS Status of ROS 10 or more systems reviewed and unremark able except as noted in history and below PFSH PFS Social History Smoking status: Current every day smoker Exam Narrative Exam Narrative: Nurses note and vital signs reviewed and patient is not hypoxic. General: The patient appears well and in no apparent distress. Patient is resting comfortably on cart. Skin: By 4 cm area of erythema with mild scaling in the center and clearing consistent with tinea. There is an additional 1 x 1 cm area in the mons pubis region and in the right lateral upper arm. No sign of cellulitis or abscess Head: Normocephalic, atraumatic Eye: Normal conjunctiva, no drainage, EOMI. PERRL Ears, Nose, Mouth, and Throat: oral mucosa is moist. Nares patent. Mouth without vesicles. Ear canals patent. Tm's without Erythema Cardiovascular: Regular Rate and Rhythm Respiratory: Patient is in no distress, no accessory muscle use, lungs are clear to auscultation, no wheezing, rales or rhonchi Back: No skin lesions noted on back or back of neck GI: Normal bowel sounds, Skin rash as noted Neurological: A&O x4, normal speech Psychiatric: Cooperative Constitutional Vital Signs, click to edit/add: Last Vital Signs Temp 98.4 F 07/08/23 22:35 Pulse 78 07/08/23 23:05 Resp 16 07/08/23 23:05 BP 130/80 07/08/23 23:05 Pulse Ox 98 07/08/23 23:05 O2 Del Method Room Air 07/08/23 23:05 Course Vital Signs Vital signs: Vital Signs Temperature 98.4 F 07/08/23 22:35 Pulse Rate 70 07/08/23 22:35 Respiratory Rate 18 07/08/23 22:35 Blood Pressure 135/73 07/08/23 22:35 Pulse Oximetry 98 07/08/23 22:35 Oxygen Delivery Method Room Air 07/08/23 22:35 Temperature 98.4 F 07/08/23 22:35 Pulse Rate 78 07/08/23 23:05 Respiratory Rate 16 07/08/23 23:05 Blood Pressure 130/80 07/08/23 23:05 Pulse Oximetry 98 07/08/23 23:05 Oxygen Delivery Method Room Air 07/08/23 23:05 MDM - Skin/Abscess/Foreign Bdy MDM Narrative Medical decision making narrative: This patient presents for evaluation and requesting a refill for antifungal cream Discharge Plan Discharge Chief Complaint: Skin/Abscess/Foreign Body Clinical Impression: Tinea corporis Patient Disposition: Home, Self-Care Time of Disposition Decision: 22:55 Condition: Good Mode of Transportation: Private Vehicle Prescriptions / Home Meds: No Action escitalopram oxalate 5 mg tablet 5 mg PO DAILY hydroxyzine pamoate 25 mg capsule 25 mg PO DAILY Instructions: Tinea Corporis (ED) Stand Alone Forms: Portal Instructions Referrals: Physician,Non-Staff, MD [Primary Care Provider] - 1 week Discharge Date/Time: 07/08/23 23:05
[2023-07-08 23:05] VITALS: BP 130/80; PULSE 78; RESP 16; O2SAT 98
== END 2023-07-08 23:05 | disposition home or self-care (01) ==
PROVIDERS: Emergency Provider Emergency Medicine
DX: B35.4 Tinea corporis (principal)
CPT/HCPCS: 99283

== ENCOUNTER 2023-08-23 08:16 | Emergency (ER) | payer MEDICAID, SELFPAY ==
[2023-08-23 08:25] VITALS: BP 123/78; PULSE 62; TEMP 36.4; O2SAT 100; BMI 21.7
--- NOTE | 2023-08-23 08:43 | ECG_ITS ---
The [facility] Test Date: 2023-08-23 Pat Name: HELEN REYNA Department: Room: - Gender: Male Program Clerk: : 1995 Requested By: [id number] Order Number: [id number] Reading MD: PORSHA MARTINEZ Measurements Intervals [place] Rate: 55 P: 58 VA: 202 QRS: 85 QRSD: 96 T: 63 QT: 402 QTc: 390 Interpretive Statements 1100 Sinus rhythm 9110 normal ECG Compared to ECG 04/23/2023 21:57:53 Right-axis deviation no longer present Electronically Signed On 08-23-2023 18:55:30 EDT by PORSHA MARTINEZ
[2023-08-23 08:54] LABS: Basophils Absolute Auto 0.1 10^3/uL (0.0-0.1); Basophils Percent Auto 0.6 % (0.2-2.0); Eosinophils Absolute Auto 0.4 10^3/uL (0.0-0.7); Eosinophils Percent Auto 4.2 % (0.9-7.0); Hemoglobin 13.6 g/dL (14.0-18.0); Immature Granulocytes Abs Auto 0.02 10^3/uL (0.00-0.03); Immature Granulocytes Pct Auto 0.2 % (0.0-0.5); Lymphocytes Absolute Auto 2.1 10^3/uL (1.2-3.8); Lymphocytes Percent Auto 24.3 % (20.5-60.0); Mean Corpuscular Hemoglobin 28.7 pg (25.9-34.0); Mean Corpuscular Volume 84.4 fL (80.0-94.0); Mean Platelet Volume 10.7 fL (9.5-13.5); Monocytes Absolute Auto 0.8 10^3/uL (0.3-0.8); Monocytes Percent Auto 9.2 % (1.7-12.0); Neutrophils Absolute Auto 5.4 10^3/uL (1.4-6.5); Neutrophils Percent Auto 61.5 % (43.0-75.0); Platelet Count 213 10^3/uL (150-450); Red Blood Count 4.74 10^6/uL (4.70-6.10); Red Cell Distribution Width 12.6 % (11.0-15.0); White Blood Count 8.8 10^3/uL (4.0-11.0)
[2023-08-23 09:07] LABS: Anion Gap 13.9; BUN Creatinine Ratio 18.5; Calcium 9.2 mg/dL (8.5-10.1); Chloride 105 mmol/L (98-107); Estimated GFR (African America >60 (>=60); Estimated GFR (Non-African Ame >60 (>=60); Glucose 85 mg/dL (74-106); Potassium 3.9 mmol/L (3.5-5.1); Sodium 141 mmol/L (136-145)
--- OUTSIDE RECORDS SUMMARY | 2023-08-23 09:20 | XMS_ITS | CCD ---
Author Organization [facility] Care Team Providers Care Technical Sourcing Recruiter Name Role Phone No, Physician Primary Care Provider UnavailJUAN Owen Attending Unavailable TRISHA, PHYSICIAN Primary Care Unavailable REQUEST, DR CATHERINE LISTED Primary Care Unavaila liz PIERRE, DR ALCANTARA Admitting Unavailable CELINE, DR KIRIT Giron Consulting Unavailable GABBY, DR ALCANTARA Attending Unavailable Vargas Blanco Consulting Unavailable Kimani Azalea Unavailable Ludwin Jeffers Attending Unavailab le Ludwin Jeffers Admitting Unavailab le Allergies Allergy Classification Reported Allergen(s) Allergy Type Date of Onset Reaction(s) Facility (1 source) bee venom Drug allergy (disorder) 08-12-2015 [facility] Repository Medications Current Medications Medication Drug [...] VARGAS BLANCO Date: 2021-09-05 19:49 Normal [facility] DRUG SCREEN RAPID (URINE)on 09-05-2021 AMP Negative Normal NEGATIVE [facility] Comment on above: Performed By: #### D RUGRPD #### [facility] [address] [address] [address] Luis Aleman BAR Negative Normal NEGATIVE [facility] Comment on above: Performed By: #### D RUGRPD #### [facility] [address] [address] [address] Luis Aleman BUP Negative Normal NEGATIVE [facility] Comment on above: Performed By: #### D RUGRPD #### [facility] [address] [place] [address] Dr. Luis Aleman BZO Negative Normal NEGATIVE [facility] Comment on above: Performed By: #### D RUGRPD #### [facility] [address] [address] [address] Luis Aleman BRAYDEN Negative Normal NEGATIVE [facility] Comment on above: Performed By: #### D RUGRPD #### [facility] [address] [address] [address] Luis Aleman CUT-OFFS SEE BELOW Normal [facility] Comment on above: Result Comment: AMP [...] ng/mL Performed By: #### D RUGRPD #### [facility] [address] [place] [address] Dr. Luis Aleman DRUG CUT HEADER DRUG CLASS TEST SYST EM CUT-OFF CONCENTRATIONS ARE FOLLOWS: Normal [facility] Comment on above: Performed By: #### D RUGRPD #### [facility] [address] [address] [address] Luis Aleman mAMP Negative Normal NEGATIVE [facility] Comment on above: Performed By: #### D RUGRPD #### [facility] [address] [place] [address] Dr. Luis Aleman MTD Negative Normal NEGATIVE [facility] Comment on above: Performed By: #### D RUGRPD #### [facility] [address] [place] [address] Dr. Luis Aleman OPI Negative Normal NEGATIVE [facility] Comment on above: Performed By: #### D RUGRPD #### [facility] [address] [place] [address] Dr. Luis Aleman OXY Negative Normal NEGATIVE [facility] Comment on above: Performed By: #### D RUGRPD #### [facility] [address] [place] [address] Dr. Luis Aleman PCP Negative Normal NEGATIVE [facility] Comment on above: Performed By: #### D RUGRPD #### [facility] [address] [place] [address] Dr. Luis Aleman PPX Negative Normal NEGATIVE [facility] Comment on above: Performed By: #### D RUGRPD #### [facility] [address] [place] [address] Dr. Luis Alemna TCA Negative Normal NEGATIVE [facility] Comment on above: Performed By: #### D RUGRPD #### [facility] [address] [place] [address] Dr. Luis Aleman THC Negative Normal NEGATIVE [facility] Comment on above: Performed By: #### D RUGRPD #### [facility] [address] [place] [address] CERVICAL SPINE WITHOUT [...] images were generated on a separate independent [employer] workstation. COMPARISON: None. FINDINGS: No acute fracture [...] each at C3-C4 and C4-5. Workstation ID: [id number] Dictated by: VARGAS BLANCO on SatOctober 02, 2018 10:30:04 PM EDT Transcribed by: VARGAS BLANCO on SatOctober 02, 2018 10:30:04 PM EDT Finalized by: VARGAS BLANCO on SatOctober 02, 2018 10:30:04 PM EDT Normal [facility] Comment on above: Order Comment: Reaso n for exam?:Patient reports slipping and falling. Patient hit head on the ground. Denies LOC. Injury/Trauma or Illness?:Injury/Trauma How long have you had these symptoms (acute/chronic)?:Acute Type of Exam?:Initial Mechanism of injury?:fall No fracture or dislocation. Possible a small posterior central disc protrusion each at C3-C4 and C4-5. Workstation ID: [id number] [facility] EXAMINATION: CT CERVICAL SPINE WITHOUT CONTRAST 3D. [...] images were generated on a separate independent [employer] workstation. COMPARISON: None. FINDINGS: No acute fracture or dislocation. The prevertebral soft tissue space appears normal. Possible a small posterior central disc protrusion each at C3-C4 and C4-5. The visualized intracranial contents appear normal. The visualized neck shows no abnormal mass. The visualized upper lungs are clear. [facility] Interface, Rad In Fu ji Speechq - [...] images were generated on a separate independent [employer] workstation. COMPARISON: None. FINDINGS: No acute fracture [...] each at C3-C4 and C4-5. Workstation ID: [id number] [facility] CT HEAD OR BRAIN WITHOUT CON TRASTon [...] small right parietooccipital scalp hematoma. Workstation ID: [id number] Dictated by: VARGAS BLANCO on SatOctober 02, 2018 10:25:56 PM EDT Transcribed by: VARGAS BLANCO on SatOctober 02, 2018 10:25:56 PM EDT Finalized by: VARGAS BLANCO on SatOctober 02, 2018 10:25:56 PM EDT [facility] Comment on above: Order Comment: Reaso n for exam?:Patient reports slipping and falling. Patient hit head on the ground. Denies LOC. Injury/Trauma or Illness?:Injury/Trauma How long have you had these symptoms (acute/chronic)?:Acute Type of Exam?:Initial Mechanism of injury?:fall No acute intracrania l process. A small right parietooccipital scalp hematoma. Workstation ID: [id number] [facility] EXAMINATION: CT HEAD OR BRAIN WITHOUT CONTRAST;10/02/2018 [...] small right parietooccipital scalp hematoma is present. [facility] Interface, Rad In Fu ji Speechq - [...] small right parietooccipital scalp hematoma. Workstation ID: [id number] [facility] LACERATION REPAIRon 10-03-19 19 Abida Martinez CNP 10/02/2018 10:58 PM Wound [...] the procedure well with no immediate complications [facility] Vital Signs Date Time Vital Sign Value Performing Clinician Facility 04-11-2023 12:40-0500 Body height 177.8 cm Azalea Kimani Other [facility] Other 04-11-2023 12:40-0500 Body mass index (BMI) [Ratio] 25.68 kg/m2 Azalea Kimani Other [facility] Other 04-11-2023 12:40-0500 Body temperature 98.8 [degF] Azalea Kimani Other [facility] Other 04-11-2023 12:40-0500 Body weight 81.19 kg Azalea Kimani Other [facility] Other 04-11-2023 12:40-0500 Respiratory rate 19 /min Azalea Kimani Other [facility] Other 04-11-2023 12:40-0500 SaO2% (BldA) [Mass fraction] 97 % Azalea Kimani Other [facility] Other 10-02-2018 21:06-0400 BMI (Body Mass Index) 23.01 kg/m2 [facility] 10-02-2018 21:06-0400 Body Temperature 98.1 [degF] [facility] 10-02-2018 21:06-0400 BP Diastolic 78 mm[Hg] [facility] 10-02-2018 21:06-0400 BP Systolic 125 mm[Hg] [facility] 10-02-2018 21:06-0400 Height 180.3 cm [facility] 10-02-2018 21:06-0400 Pulse (Heart Rate) 77 /min [facility] 10-02-2018 21:06-0400 Pulse Oximetry 99 % [facility] 10-02-2018 21:06-0400 Respiratory Rate 16 /min [facility] 10-02-2018 21:06-0400 Weight 74.84 kg [facility] Encounters Encounter Date Encounter Type Care Provider Facility Start: 05-16-2023 ambulatory Ludwin Stephen acility:[facility] Start: 04-11-2023 End: 04-11-2023 ambulatory Azalea Kimani Other [facility] Other Start: 04-11-2023 Office outpatient visit 15 minutes Azalea Kimani [facility] Start: 09-05-2021 End: 09-05-[address] NONE LISTED REQUEST Facility: Start: 10-02-2018 End: 10-03-2018 Emergency department patient visit JUAN MISHA [facility] Start: 10-02-2018 End: 10-02-2018 Emergency department patient visit Juan Boyd Work Phone: [facility] Emergency Department Comment on above: [...] given SE QUENTIAL INFLUENZA VACCINE (Season Ended) [facility] Start: 1997 History and physical examination, annual for health maintenance Wellness Visit [facility] Start: 1994 Tetanus vaccination TETANUS EVERY 10 YR [facility] Immunizations Immunization Date Immunization Notes Care Provider Kae salinasty 10-02-2018 diphtheria, tetanus toxoids and acellular pertussis vaccine, unspecified formulation Juan Boyd [facility] 10-02-2018 tetanus toxoid, redu nataly diphtheria toxoid, and acellular pertussis vaccine, adsorbed Juan Boyd [facility] Payers Date Payer Category Payer Self-pay 1994 Unknown [id number] 1994 Unknown [id number] 1959 Unknown [id number] Unknown [place] [place] Effective for all dates xxxxxxxxx [id number] Unknown [id number] Social History Date Type Detail Facility Start: 10-02-2018 Tobacco smoking status MTIS Former smoker [facility] Sex Assigned At Not on file [facility] Sex Assigned At Sex Assigned At [facility] [employer] Other Evaluation note 04-11-2023 Note Date & [...] dark tarry stools or coffee gorund vomit. [facility] Other History general Narrative - Reported Note Date & Type Note Facility History general Narrative - Reported Type Medical History PTSD Medical History Depression Medical History Anxiety [facility] Other Assessments Diagnosis Head injury, initial encounter- Primary Laceration of scalp, initial encounter Advance Directives No Advanced Directives Records FoundDocuments on File Type Date Recorded Patient [employer] Expl anation Advance Directives and Livin g Will 10/02/2018 9:23 PM Summary Purpose Family History No Family History Records FoundNo Family History Records FoundNo Family History Records Found Additional Source Comments Reason for Visit (unrecogniz ed section and content) Reason Comments Head Laceration Damaris Rodas RN - 10/02/2018 10:45 PM Abida Dumont CNP - 10/02/2018 9:37 PM Damaris Maynard RN - 10/02/2018 9:10 PM Damaris Maynard RN - 10/02/2018 9:05 PM EDT ED Notes (unrecognized secti on and content) Follow-up to medication: No adverse reaction noted at this time. Associated Order(s): Lac Repair Lizette Thompson [facility] ED Physician Note: NAME: Raymond Mccian 23 y.o. CSN: [id number] PCP: Physician No Chief Complaint: Head Laceration [...] instructions. Disposition: Patient is being discharged to group home Follow-up Information 1. group home doctor. 2 days for head injury. 10 [...] comes to emergency room via ambulance from group home for evaluation of head laceration. Patient reports [...] from the fall History provided by: Patient plug sorter used: No PMHx: History reviewed. No pertinent [...] file Gets together: Not on file Attends gnosticism service: Not on file Active member of [...] each at C3-C4 and C4-5. Workstation ID: [id number] CT Head Or Brain Without Contrast Final Result No acute intracranial process. A small right parietooccipital scalp hematoma. Workstation ID: [id number] Procedures: Wound extent: Lac Repair Date/Time: 10/02/2018 [...] expedite correspondence this note was generated by [email or web address] voice recognition software. Some grammatical or spelling errors may occur using the system. SARA Aguirre, ENP-C ED Nurse Practitioner [facility] Emergency [facility] (Please note that portions of this note have been completed with a voice recognition software. Efforts were made to correct any errors, but occasionally words are mis-transcribed.) Abida Martinez CNP 10/02/18 [id number] See /ISATU charting for full physical exam [...] and content) DATE CREATED AUTHOR 12/21/2018 [facility] DATE CREATED AUTHOR AUTHOR'S ORGANIZ ATION 09/08/2021 [facility] DATE CREATED AUTHOR AUTHOR'S ORGANIZ ATION 08/09/2023 [facility] FOR RECORDS PERTAINING TO PATIENTS [...] BE BASED ON THE PRIMARY CLINICAL RECORDS. [facility]. provides no warranty or guarantee of the accuracy or completeness of information in this document.
--- NOTE | 2023-08-23 09:41 | ED.DIZZY1 ---
HPI - Dizziness General Chief Complaint: Dizziness Stated Complaint: DIZZINESS Time Seen by Provider: 08/23/23 08:28 Source: patient Mode of arrival: walk-in Limitations: no limitations History of Present Illness HPI Narrative: 28-year-old male presents for dizziness which she has had intermittently for 2 days. It is worse at work. He started a new position at work and he is exposed to some noxious fumes and he does not wear a mask. 2 days ago he also increased his dose of Lexapro from 5 mg a day to 10 mg a day. He feels better when he is at home and he has had no palpitations fever or vomiting. Related Data Home Medications ?Medication ?Instructions ?Recorded ?Confirmed escitalopram oxalate 5 mg tablet 10 mg PO DAILY 04/23/23 08/23/23 hydroxyzine pamoate 25 mg capsule 25 mg PO DAILY 04/23/23 08/23/23 Allergies Allergy/AdvReac Type Severity Reaction Status Date / Time No Known Drug Allergies Allergy Verified 05/31/23 22:05 Review of Systems ROS Narrative A ten point review of systems is negative except as noted above. PFSH PFSH Social History Smoking status: Current every day smoker Exam Narrative Exam Narrative: Nurses note and vital signs reviewed and patient is not hypoxic. General: The patient appears well and in no apparent distress. Patient is resting comfortably on cart. Skin: Warm, dry, no pallor noted. There is no rash noted. Head: Normocephalic, atraumatic Eye: Normal conjunctiva, no drainage Ears, Nose, Mouth, and Throat: oral mucosa is moist. Nares patent. Cardiovascular: Regular Rate and Rhythm Respiratory: Patient is in no distress, no accessory muscle use, lungs are clear to auscultation, no wheezing, rales or rhonchi Back: non-tender GI: Soft and nontender Musculoskeletal: The patient has no evidence of calf tenderness, no pitting edema, symmetrical pulses noted bilaterally Neurological: A&O, normal speech, Upper and lower extremity strength 5 out of 5 and symmetric Psychiatric: Cooperative Constitutional Vital Signs, click to edit/add: Last Vital Signs Temp 97.6 F 08/23/23 08:25 Pulse 62 08/23/23 08:25 Resp 18 08/23/23 08:25 BP 123/78 08/23/23 08:25 Pulse Ox 100 04/12/24 08:25 O2 Del Method Room Air 04/12/24 08:25 Course Vital Signs Vital signs: Vital Signs Temperature 97.6 F 08/23/23 08:25 Pulse Rate 62 08/23/23 08:25 Respiratory Rate 18 08/23/23 08:25 Blood Pressure 123/78 08/23/23 08:25 Pulse Oximetry 100 08/23/23 08:25 Oxygen Delivery Method Room Air 08/23/23 08:25 Temperature 97.6 F 08/23/23 08:25 Pulse Rate 62 08/23/23 08:25 Respiratory Rate 18 08/23/23 08:25 Blood Pressure 123/78 08/23/23 08:25 Pulse Oximetry 100 08/23/23 08:25 Oxygen Delivery Method Room Air 08/23/23 08:25 MDM - Dizziness MDM Narrative Medical decision making narrative: His workup here is negative. The possibility that this is due to the Lexapro was discussed with the patient but he feels better at home and his symptoms are much worse at work when he is exposed to the noxious fumes. He was recommended to wear a mask at work and he states he does have that availability and will do so. If symptoms persist he will follow-up with his doctor. Treatment diagnosis and follow-up were discussed with the patient. Differential Diagnosis Differential diagnosis: Likely adverse reaction to drug, benign paroxysmal positional vertigo and other (Chemical exposure, dehydration) Lab Data Attestation: I reviewed the patient's lab results. Labs: Lab Results 08/23/23 Range/Units 08:50 WBC 8.8 (4.0-11.0) 10^3/uL RBC 4.74 (4.70-6.10) 10^6/uL Hgb 13.6 L (14.0-18.0) g/dL Hct 40.0 L (42.0-54.0) % MCV 84.4 (80.0-94.0) fL MCH 28.7 (25.9-34.0) pg MCHC 34.0 (29.9-35.2) g/dL RDW 12.6 (11.0-15.0) % Plt Count 213 (150-450) 10^3/uL MPV 10.7 (9.5-13.5) fL Neut % (Auto) 61.5 (43.0-75.0) % Lymph % (Auto) 24.3 (20.5-60.0) % Izard % (Auto) 9.2 (1.7-12.0) % Eos % (Auto) 4.2 (0.9-7.0) % Baso % (Auto) 0.6 (0.2-2.0) % Neut # (Auto) 5.4 (1.4-6.5) 10^3/uL Lymph # (Auto) 2.1 (1.2-3.8) 10^3/uL Izard # (Auto) 0.8 (0.3-0.8) 10^3/uL Eos # (Auto) 0.4 (0.0-0.7) 10^3/uL Baso # (Auto) 0.1 (0.0-0.1) 10^3/uL Abs Immat Gran (auto) 0.02 (0.00-0.03) 10^3/uL Imm/Tot Granulo (auto) 0.2 (0.0-0.5) % Sodium 141 (136-145) mmol/L Potassium 3.9 (3.5-5.1) mmol/L Chloride 105 (98-107) mmol/L Carbon Dioxide 26.0 (21.0-32.0) mmol/L Anion Gap 13.9 BUN 17.0 (7.0-18.0) mg/dL Creatinine 0.92 (0.70-1.30) mg/dL Est GFR ( Amer) >60 (>=60) Est GFR (Non-Af Amer) >60 (>=60) BUN/Creatinine Ratio 18.5 Glucose 85 (74-106) mg/dL Calcium 9.2 (8.5-10.1) mg/dL ECG Data Attestation: I personally reviewed and interpreted this ECG as follows: (EKG on my interpretation shows normal sinus rhythm with a rate of 55 and no acute change) Discharge Plan Discharge Stand Alone Forms: Portal Instructions Chief Complaint: Dizziness Clinical Impression: Dizziness Patient Disposition: Home, Self-Care Time of Disposition Decision: 09:25 Condition: Good Mode of Transportation: Private Vehicle Prescriptions / Home Meds: No Action escitalopram oxalate 5 mg tablet 10 mg PO DAILY hydroxyzine pamoate 25 mg capsule 25 mg PO DAILY Print Language: Kinyarwanda Instructions: Dizziness (ED) Referrals: Physician,Non-Staff, MD [Primary Care Provider] - 1 week
== END 2023-08-23 09:50 | disposition home or self-care (01) ==
PROVIDERS: Emergency Provider Emergency Medicine
DX: R42 Dizziness and giddiness (principal); Z79.899 Other long term (current) drug therapy; F17.210 Nicotine dependence, cigarettes, uncomplicated
CPT/HCPCS: 36415; 80048; 85025; 93005; 99284

== ENCOUNTER 2023-09-17 23:56 | Emergency (ER) | payer MEDICAID, SELFPAY ==
--- OUTSIDE RECORDS SUMMARY | 2023-09-18 00:06 | XMS_ITS | CCD ---
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 Name Role Phone No, Physician Primary Care Provider UnavailJUAN Owen Attending Unavailable NO, PHYSICIAN Primary Care Unavailable REQUEST, DR ALEXANDER LISTED Primary Care Unavaila liz PIERRE, DR ALCANTARA Admitting Unavailable CELINE, DR KIRIT Giron Consulting Unavailable GABBY, DR ALCANTARA Attending Unavailable Vargas Blanco Consulting Unavailable Azalea Harman Unavailable Ludwin Jeffers Attending Unavailab le Ludwin Jeffers Admitting Unavailab le Allergies Allergy Classification Reported Allergen(s) Allergy Type Date of Onset Reaction(s) Facility (1 source) bee venom Drug allergy (disorder) 08-12-2015 The Repository Medications Current Medications Medication Drug Class(es) [...] VARGAS BLANCO Date: 2021-09-05 19:49 Normal The DRUG SCREEN RAPID (URINE)on 09-05-2021 AMP Negative Normal NEGATIVE The Comment on above: Performed By: #### D RUGRPD #### Laboratory [address] [address] [address] Luis Aleman BAR Negative Normal NEGATIVE The Comment on above: Performed By: #### D RUGRPD #### Laboratory [address] [address] [address] Luis Aleman BUP Negative Normal NEGATIVE [facility] Comment on above: Performed By: #### D RUGRPD #### Laboratory [address] [place] [address] Dr. Luis Aleman BZO Negative Normal NEGATIVE The Comment on above: Performed By: #### D RUGRPD #### Laboratory [address] [place] [address] Dr. Luis Aleman BRAYDEN Negative Normal NEGATIVE The Comment on above: Performed By: #### D RUGRPD #### Laboratory [address] [place] [address] Dr. Luis Aleman CUT-OFFS SEE BELOW Normal The Comment on above: Result Comment: AMP (Amphetamine): 500ng/mL, BAR (Barbituates): 200 ng/mL, BZO (Benzodiazepines): 150 ng/mL, BUP (Buprenorphine): 10 ng/mL, BRAYDEN (Cocaine): 150 ng/mL, mAMP (Methamphetamine): 500 ng/mL, MTD (Methadone): 200 ng/mL, OPI (Opiates): 100 ng/mL, OXY (Oxycodone): 100 ng/mL, PCP (Phencyclidine): 25 ng/mL, PPX (Propoxyphene): 300 ng/mL, THC (Cannabinoids): 50 ng/mL, TCA (Trycyclic Antidepressants): 300 ng/mL Performed By: #### D RUGRPD #### Laboratory [address] [place] [address] Dr. Luis Aleman DRUG CUT HEADER DRUG CLASS TEST SYST EM CUT-OFF CONCENTRATIONS ARE FOLLOWS: Normal The Comment on above: Performed By: #### D RUGRPD #### Laboratory [address] [address] [address] Luis Aleman mAMP Negative Normal NEGATIVE [facility] Comment on above: Performed By: #### D RUGRPD #### Laboratory [address] [address] [address] Luis Aleman MTD Negative Normal NEGATIVE The Comment on above: Performed By: #### D RUGRPD #### Laboratory [address] [address] [address] Luis Aleman OPI Negative Normal NEGATIVE [facility] Comment on above: Performed By: #### D RUGRPD #### Laboratory [address] [place] [address] Dr. Luis Aleman OXY Negative Normal NEGATIVE The Comment on above: Performed By: #### D RUGRPD #### Laboratory [address] [address] [address] Luis Aleman PCP Negative Normal NEGATIVE [facility] Comment on above: Performed By: #### D RUGRPD #### Laboratory [address] [address] [address] Luis Aleman PPX Negative Normal NEGATIVE [facility] Comment on above: Performed By: #### D RUGRPD #### Laboratory [address] [address] [address] Luis Aleman TCA Negative Normal NEGATIVE The Comment on above: Performed By: #### D RUGRPD #### Laboratory [address] [address] [address] Luis Aleman THC Negative Normal NEGATIVE [facility] Comment on above: Performed By: #### D RUGRPD #### Laboratory [address] [place] [address] CERVICAL SPINE WITHOUT [...] images were generated on a separate independent [employer] workstation. COMPARISON: None. FINDINGS: No acute fracture [...] each at C3-C4 and C4-5. Workstation ID: [id number] Dictated by: VARGAS BLANCO on SatOctober 02, 2018 10:30:04 PM EDT Transcribed by: VARGAS BLANCO on SatOctober 02, 2018 10:30:04 PM EDT Finalized by: VARGAS BLANCO on SatOctober 02, 2018 10:30:04 PM EDT Normal [facility] Comment on above: Order Comment: Reaso n for exam?:Patient reports slipping and falling. Patient hit head on the ground. Denies LOC. Injury/Trauma or Illness?:Injury/Trauma How long have you had these symptoms (acute/chronic)?:Acute Type of Exam?:Initial Mechanism of injury?:fall No fracture or dislocation. Possible a small posterior central disc protrusion each at C3-C4 and C4-5. Workstation ID: [id number] [facility] EXAMINATION: CT CERVICAL SPINE WITHOUT CONTRAST [...] images were generated on a separate independent [employer] workstation. COMPARISON: None. FINDINGS: No acute fracture or dislocation. The prevertebral soft tissue space appears normal. Possible a small posterior central disc protrusion each at C3-C4 and C4-5. The visualized intracranial contents appear normal. The visualized neck shows no abnormal mass. The visualized upper lungs are clear. [facility] Interface, Rad In Fu ji Speechq [...] images were generated on a separate independent [employer] workstation. COMPARISON: None. FINDINGS: No acute fracture [...] each at C3-C4 and C4-5. Workstation ID: [id number] [facility] CT HEAD OR BRAIN WITHOUT CON [...] small right parietooccipital scalp hematoma. Workstation ID: [id number] Dictated by: VARGAS BLANCO on SatOctober 02, 2018 10:25:56 PM EDT Transcribed by: VARGAS BLANCO on SatOctober 02, 2018 10:25:56 PM EDT Finalized by: VARGAS BLANCO on SatOctober 02, 2018 10:25:56 PM EDT Normal [facility] Comment on above: Order Comment: Reaso n for exam?:Patient reports slipping and falling. Patient hit head on the ground. Denies LOC. Injury/Trauma or Illness?:Injury/Trauma How long have you had these symptoms (acute/chronic)?:Acute Type of Exam?:Initial Mechanism of injury?:fall No acute intracrania l process. A small right parietooccipital scalp hematoma. Workstation ID: [id number] [facility] EXAMINATION: CT HEAD OR BRAIN WITHOUT [...] small right parietooccipital scalp hematoma is present. [facility] Interface, Rad In Fu ji Speechq [...] small right parietooccipital scalp hematoma. Workstation ID: [id number] [facility] LACERATION REPAIRon 10-03-19 19 Abida Martinez [...] the procedure well with no immediate complications [facility] Vital Signs Date Time Vital Sign Value Performing Clinician Facility 04-11-2023 12:40-0500 Body height 177.8 cm Azalea Kimani Other [employer] Other 04-11-2023 12:40-0500 Body mass index (BMI) [Ratio] 25.68 kg/m2 Azalea Kimani Other [employer] Other 04-11-2023 12:40-0500 Body temperature 98.8 [degF] Azalea Kimani Other [employer] Other 04-11-2023 12:40-0500 Body weight 81.19 kg Azalea Kimani Other [employer] Other 04-11-2023 12:40-0500 Respiratory rate 19 /min Azalea Kimani Other [employer] Other 11-30-2023 12:40-0500 SaO2% (BldA) [Mass fraction] 97 % Azalea Kimani Other [employer] Other 10-02-2018 21:06-0400 BMI (Body Mass Index) 23.01 kg/m2 [facility] 10-02-2018 21:06-0400 Body Temperature 98.1 [degF] [facility] 10-02-2018 21:06-0400 BP Diastolic 78 mm[Hg] [facility] 10-02-2018 21:06-0400 BP Systolic 125 mm[Hg] [facility] 10-02-2018 21:06-0400 Height 180.3 cm [facility] 10-02-2018 21:06-0400 Pulse (Heart Rate) 77 /min [facility] 10-02-2018 21:06-0400 Pulse Oximetry 99 % [facility] 10-02-2018 21:06-0400 Respiratory Rate 16 /min [facility] 10-02-2018 21:06-0400 Weight 74.84 kg [facility] Encounters Encounter Date Encounter Type Care Provider Facility Start: 06-18-2023 ambulatory Ludwin Stephen acility:[facility] Start: 04-11-2023 End: 04-11-2023 ambulatory Azalea Kimani Other [employer] Other Start: 04-11-2023 Office outpatient visit 15 minutes Azalea Kimani [facility] Start: 09-05-2021 End: 09-05-[address] NONE LISTED REQUEST Facility: Start: 10-02-2018 End: 10-03-2018 Emergency department patient visit JUAN MISHA [facility] Start: 10-02-2018 End: 10-02-2018 Emergency department patient visit Juan Boyd Work Phone: [facility] Emergency Department Comment on above: Head injury, [...] given SE QUENTIAL INFLUENZA VACCINE (Season Ended) [facility] Start: 1997 History and physical examination, annual for health maintenance Wellness Visit [facility] Start: 1994 Tetanus vaccination TETANUS EVERY 10 YR [facility] Immunizations Immunization Date Immunization Notes Care Provider Fa cility 10-02-2018 diphtheria, tetanus toxoids and acellular pertussis vaccine, unspecified formulation Juan Boyd [facility] 10-02-2018 tetanus toxoid, redu nataly diphtheria toxoid, and acellular pertussis vaccine, adsorbed Juan Boyd [facility] Payers Date Payer Category Payer Self-pay 1994 Unknown [id number] 1994 Unknown [id number] 1959 Unknown [id number] Unknown [place] [facility] [place] Effective for all dates xxxxxxxxx [id number] Unknown [id number] Social History Date Type Detail Facility Start: 10-02-2018 Tobacco smoking status ALIS Former smoker [facility] Sex Assigned At Not on file [facility] Sex Assigned At Sex Assigned At [facility] [employer] Other Evaluation note 04-11-2023 Note Date & [...] dark tarry stools or coffee gorund vomit. [employer] Other History general Narrative - Reported Note Date & Type Note Facility History general Narrative - Reported Type Medical History PTSD Medical History Depression Medical History Anxiety [employer] Other Assessments Diagnosis Head injury, initial encounter- Primary Laceration of scalp, initial encounter Advance Directives No Advanced Directives Records FoundDocuments on File Type Date Recorded Patient Outside Deliverer Expl anation Advance Directives and Livin g [...] at this time. Associated Order(s): Lac Repair [facility] ED Physician Note: NAME: Raymond Mccain 23 y.o. CSN: [id number] PCP: Physician No Chief Complaint: Head Laceration [...] instructions. Disposition: Patient is being discharged to [facility] Follow-up Information 1. [facility] doctor. 2 days for head injury. 10 [...] comes to emergency room via ambulance from [facility] for evaluation of head laceration. Patient reports [...] from the fall History provided by: Patient primary care md used: No PMHx: History reviewed. No pertinent [...] file Gets together: Not on file Attends yazdanism service: Not on file Active member of [...] each at C3-C4 and C4-5. Workstation ID: [id number] CT Head Or Brain Without Contrast Final Result No acute intracranial process. A small right parietooccipital scalp hematoma. Workstation ID: [id number] Procedures: Wound extent: Lac Repair Date/Time: 10/02/2018 [...] expedite correspondence this note was generated by [employer] voice recognition software. Some grammatical or spelling errors may occur using the system. SARA Aguirre, ENP-C ED Nurse Practitioner [facility] Emergency Department (Please note that portions of this note have been completed with a voice recognition software. Efforts were made to correct any errors, but occasionally words are mis-transcribed.) Abida Martinez CNP 10/02/18 [id number] See /ISATU charting for full physical exam [...] examination, documentation, and discharge. Juan Boyd MD, [facility] Physician documented in this encounter (unrecognized sect ion and content) No Status Records FoundNo Status Records Found INFORMATION SOURCE (unrecogn ized section and content) DATE CREATED AUTHOR 12/21/2018 [facility] DATE CREATED AUTHOR AUTHOR'S ORGANIZ ATION 09/08/2021 [facility] DATE CREATED AUTHOR AUTHOR'S ORGANIZ ATION 08/28/2023 [facility] FOR RECORDS PERTAINING TO PATIENTS WHO ARE [...] BE BASED ON THE PRIMARY CLINICAL RECORDS. [facility]. provides no warranty or guarantee of the accuracy or completeness of information in this document.
[2023-09-18 01:01] VITALS: BP 135/91; PULSE 64; O2SAT 99; BMI 23.1
[2023-09-18 01:06] VITALS: TEMP 36.6
--- NOTE | 2023-09-18 01:27 | ED_ITS ---
HPI - Nausea/Vomiting/Diarrhea General Chief complaint: Nausea/Vomiting/Diarrhea Stated complaint: DIARRHEA Time Seen by Provider: 09/18/23 00:30 Source: patient Mode of arrival: walk-in Limitations: no limitations History of Present Illness HPI Narrative: This 28-year-old male presents for evaluation of nausea vomiting and diarrhea. 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 He states that he cooked up some ground beef that he thinks was in the freezer and had been left in the refrigerator to long. He ate it anyway and shortly thereafter started having abdominal cramps with nausea, dry heaves, abdominal cramps and 2 episodes of diarrhea. He states the diarrhea has kind of resolved and his nausea is improving but he still has a bad taste in his mouth and his stomach is upset. He requests something for nausea and dyspepsia and a note for work. He declines any IV fluids. He denies any chest pain or shortness of breath. He has no specific abdominal pain. Related Data Home Medications ?Medication ?Instructions ?Recorded ?Confirmed escitalopram oxalate 5 mg tablet 10 mg PO DAILY 04/23/23 08/23/23 hydroxyzine pamoate 25 mg capsule 25 mg PO DAILY 04/23/23 08/23/23 Allergies Allergy/AdvReac Type Severity Reaction Status Date / Time No Known Drug Allergies Allergy Verified 09/18/23 01:04 Review of Systems ROS Status of ROS 10 or more systems reviewed and unremark able except as noted in history and below [facility] Social History Smoking status: Current every day smoker Exam Narrative Exam Narrative: Nurses note and vital signs reviewed and patient is not hypoxic. General: The patient appears well and in no apparent distress. He is holding an emesis basin but is not vomiting. No dry heaves noted Skin: Warm, dry, no pallor noted. There is no rash noted. Head: Normocephalic, atraumatic Eye: Normal conjunctiva, no drainage, EOMI. PERRL Ears, Nose, Mouth, and Throat: oral mucosa is moist. Nares patent. Mouth without vesicles. Ear canals patent. Tm's without Erythema Cardiovascular: Regular Rate and Rhythm S1S2, pulses are brisk and equal bilaterally Respiratory: Patient is in no distress, no accessory muscle use, lungs are clear to auscultation, no wheezing, rales or rhonchi Back: non-tender, no CVA tenderness bilaterally to percussion. GI: Normal bowel sounds, no tenderness to palpation, no masses appreciated. No rebound, guarding, or rigidity noted. Musculoskeletal: The patient has no evidence of calf tenderness, no pitting edema, symmetrical pulses noted bilaterally Neurological: A&O x4, normal speech Psychiatric: Cooperative Constitutional Vital Signs, click to edit/add: Last Vital Signs Temp 97.9 F 09/18/23 01:06 Pulse 64 09/18/23 01:01 Resp 18 09/18/23 01:01 BP 135/91 09/18/23 01:01 Pulse Ox 99 09/18/23 01:01 O2 Del Method Room Air 09/18/23 01:01 Course Vital Signs Vital signs: Vital Signs Pulse Rate 64 09/18/23 01:01 Respiratory Rate 18 09/18/23 01:01 Blood Pressure 135/91 09/18/23 01:01 Pulse Oximetry 99 09/18/23 01:01 Oxygen Delivery Method Room Air 09/18/23 01:01 Temperature 97.9 F 09/18/23 01:06 Pulse Rate 64 09/18/23 01:01 Respiratory Rate 18 09/18/23 01:01 Blood Pressure 135/91 09/18/23 01:01 Pulse Oximetry 99 09/18/23 01:01 Oxygen Delivery Method Room Air 09/18/23 01:01 MDM - Nausea/Vomiting/Diarrhea MDM Narrative Medical decision making narrative: This 28-year-old male presents for evaluation of several hours of nausea vomiting diarrhea after he takes that he ate ground beef that was bad . His vital signs are stable. His physical exam is benign. He declined an IV, blood work or any IV medications. He requested something for nausea and dyspepsia no for work. He was given a Zofran, Pepcid and a note for work. He was encouraged return to emergency department for worsening symptoms or inability to tolerate his medications. Discharge Plan Discharge Stand Alone Forms: Portal Instructions Chief Complaint: Nausea/Vomiting/Diarrhea Clinical Impression: Gastritis, Gastroenteritis Patient Disposition: Home, Self-Care Time of Disposition Decision: 01:25 Condition: Good Prescriptions / Home Meds: No Action escitalopram oxalate 5 mg tablet 10 mg PO DAILY hydroxyzine pamoate 25 mg capsule 25 mg PO DAILY Print Language: Lithuanian Instructions: Gastroenteritis (ED), Acute Nausea and Vomiting (ED), Acute Diarrhea (ED) Referrals: Physician,Non-Staff, MD [Primary Care Provider] - 1 week
[2023-09-18] MEDS: FAMOTIDINE 20 MG TABLET PO (01:38)
[2023-09-18] MEDS: ONDANSETRON 4 MG RAPDIS TABLET SL (01:38)
[2023-09-18 01:40] VITALS: BP 125/69; PULSE 70; O2SAT 99
== END 2023-09-18 01:45 | disposition home or self-care (01) ==
PROVIDERS: Emergency Provider Emergency Medicine
DX: K29.70 Gastritis, unspecified, without bleeding (principal); K52.9 Noninfective gastroenteritis and colitis, unspecified; F17.210 Nicotine dependence, cigarettes, uncomplicated
CPT/HCPCS: 99283